=== PATIENT | female | born 1985 | race Caucasian/White ===

== ENCOUNTER 2022-11-16 16:23 | Outpatient (CLI) | payer OTHER, SELFPAY | END 2022-11-16 16:24 | disposition home or self-care (01) | PROVIDERS: Visit Provider Registered Nurse | DX: Z01.419 Encounter for gynecological examination (general) (routine) without abnormal findings (principal); N94.10 Unspecified dyspareunia; Z13.6 Encounter for screening for cardiovascular disorders; Z13.1 Encounter for screening for diabetes mellitus | CPT/HCPCS: 80061; 82947 ==

== ENCOUNTER 2022-11-17 15:00 | Outpatient (CLI) | payer OTHER, SELFPAY ==
--- NOTE | 2022-11-17 15:00 | CRLHL7_ITS ---
For Patients: As a result of the Cures Act, medical imaging exams and procedure reports are released immediately into your electronic medical record. You may view this report before your referring provider. If you have questions, please contact your health care provider. INDICATION: Dyspareunia. Known endometriosis. COMPARISON: None available. FINDINGS: Transvaginal and transabdominal ultrasound examination of the female pelvis was performed. Initial examination is performed with transabdominal technique and transvaginal technique is used for better visualization of the pelvic structures. The uterus is anteverted with no evidence of mass. It measures 7.3 x 3.7 x 4.1 cm. The endometrial lining is mildly increased in thickness at 12 mm. There is a tiny hypoechoic region in the endometrium measuring 0.5 x 0.2 centimeters, probably a small amount of fluid. Incidental note is made of nabothian cysts in the cervix. The right ovary is normal in size and appearance, measuring 2.7 x 1.4 x 1.5 centimeters. The left ovary is mildly enlarged by a simple cyst measuring 2.9 x 2.4 x 2.9 centimeters. The ovary measures 4.0 x 2.9 x 3.6 centimeters. There is normal color and pulse doppler flow in both ovaries. There is no sign of free fluid in the pelvis. IMPRESSION: Mild thickening of the endometrial lining most likely related to the patient`s menstrual cycle. Tiny amount of fluid in the uterine cavity of no clinical concern. Mild enlargement of the left ovary by a simple cyst which measures up to 2.9 centimeters in diameter. Normal appearance of the right ovary. Nothing seen to suggest endometriosis or an endometrioma. Dictated by Inocencio Sanches MD @ 11/19/2022 5:45:38 PM (Electronically Signed)
== END 2022-11-17 15:01 | disposition home or self-care (01) ==
LOC: US 15:01
PROVIDERS: Visit Provider Registered Nurse
DX: N94.10 Unspecified dyspareunia (principal); R39.89 Other symptoms and signs involving the genitourinary system; N83.202 Unspecified ovarian cyst, left side
CPT/HCPCS: 76830; 76856; 93976

== ENCOUNTER 2024-06-20 09:19 | Outpatient (CLI) | payer OTHER, SELFPAY ==
[2024-06-22 17:09] LABS: HPV Source Cervical; HPV, High Risk by TMA Not Detected
== END 2024-06-20 09:20 | disposition home or self-care (01) ==
PROVIDERS: Visit Provider Obstetrics & Gynecology
DX: Z12.4 Encounter for screening for malignant neoplasm of cervix (principal); Z13.6 Encounter for screening for cardiovascular disorders
CPT/HCPCS: 80061; 87624; 87625; 88141; 88142